=== PATIENT | female | born 1995 | race Caucasian/White ===

== ENCOUNTER 2017-01-08 20:38 | Emergency (ER) | payer OTHER ==
[~2017-01-08] VITALS: Ht 157.5 cm; Wt 59.0 kg
[2017-01-08 20:46] VITALS: BP 119/82
[2017-01-08] MEDS ORDERED: KETOROLAC TROMETH 30 MG/ML 1ML VIAL IV ONE (23:45)
== END 2017-01-09 00:29 | disposition home or self-care (01) ==
LOC: ER 20:38
DX: S60.051A Contusion of right little finger without damage to nail, initial encounter (principal); X58.XXXA Exposure to other specified factors, initial encounter; Y93.89 Activity, other specified; Y99.8 Other external cause status; Y92.89 Other specified places as the place of occurrence of the external cause
CPT/HCPCS: 73130; 81025; 96374; 99285; J1885